=== PATIENT | male | born 1965 | race Caucasian/White ===

== ENCOUNTER 2019-12-20 08:08 | Emergency (ER) | payer OTHER ==
[2019-12-20 08:19] VITALS: TEMP 98.1
[2019-12-20 09:39] VITALS: BP 130/70; PULSE 70; RESP 16
--- NOTE | 2019-12-20 09:52 | XR ---
EXAMINATION TYPE: XR Hip Complete LT DATE OF EXAM: 12/20/2019 CLINICAL HISTORY: Left hip pain TECHNIQUE: AP and frogleg views of the left hip are obtained. COMPARISON: None. FINDINGS: There is no acute fracture/dislocation evident in the left hip. The joint space in the le ft hip appears aligned with mild arthropathy demonstrated as acetabular sclerosis and very small subc hondral cyst. Very small cam deformity is also seen at the lateral femoral head neck junction. The o verlying soft tissue appears unremarkable. IMPRESSION: There is no acute fracture or dislocation in the left hip. Mild left femoral acetabular arthropathy and very small cam deformity at the lateral femoral head neck junction, which can predisp ose this patient to femoral acetabular impingement syndrome
--- NOTE | 2019-12-20 10:06 | ED ---
Extremity Problem HPI - General Chief complaint: Extremity Problem,Nontraumatic Stated complaint: lt hip/leg pain, numbness Time Seen by Provider: 12/20/19 08:45 Source: patient Mode of arrival: ambulatory Limitations: no limitations - History of Present Illness Initial comments: Patient is 54-year-old male presenting to emergency Department with a chief complaint of left hip pain. Patient reports the symptoms have been worse over the last 2 days but have persisted for about one week. Patient reports the pain is exacerbated with ambulation or any weightbearing. Patient reports the pain starts in the left hip/left groin region and radiates along the anterior aspect to the knee. Denies any numbness or tingling. Denies any trauma to the region. Denies any history of osteoarthritis. Denies taking medication to alleviate his symptoms. Denies any testicular pain or swelling. Denies saddle anesthesia, urinary or bowel incontinence. - Related Data Allergies Allergy/AdvReac Type Severity Reaction Status Date / Time No Known Allergies Allergy Verified 12/20/19 08:19 Review of Systems ROS Statement: Those systems with pertinent positive or pertinent negative responses have been documented in the HPI. ROS Other: All systems not noted in ROS Statement are negative. Past Medical History Past Medical History: Diabetes Mellitus, Hypertension, Thyroid Disorder Additional Past Medical History / Comment(s): depression History of Any Multi-Drug Resistant Organisms: None Reported Past Surgical History: Back Surgery Past Psychological History: Depression Smoking Status: Never smoker Past Alcohol Use History: None Reported Past Drug Use History: None Reported General Exam Limitations: no limitations General appearance: alert, in no apparent distress Head exam: Present: atraumatic, normocephalic, normal inspection Eye exam: Present: normal appearance Pupils: Present: normal accommodation ENT exam: Present: normal exam Neck exam: Present: normal inspection, full ROM Respiratory exam: Present: normal lung sounds bilaterally Cardiovascular Exam: Present: regular rate, normal rhythm, normal heart sounds Extremities exam: Present: normal inspection, full ROM, tenderness (Left hip tenderness.), normal capillary refill, other (+2). Absent: pedal edema, joint swelling, calf tenderness (Negative Homans bilaterally) Back exam: Present: normal inspection, full ROM Neurological exam: Present: alert, oriented X3 Psychiatric exam: Present: normal affect, normal mood Skin exam: Present: warm, dry, intact, normal color Course Vital Signs 12/20/19 12/20/19 08:15 09:39 Temperature 98.1 F Pulse Rate 79 70 Respiratory 18 16 Rate Blood Pressure 134/75 130/70 O2 Sat by Pulse 97 100 Oximetry Medical Decision Making - Medical Decision Making Patient 54-year-old male presenting to emergency Department with a chief complaint of left hip pain. Patient does appear to have a pain starting in the left groin region radiating to the knee. 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 No cauda equina. Patient advised to alternate between Tylenol for pain control. He was advised to fol low-up with math specialist. Return parameters were thoroughly discussed the patient was understanding and agreeable. Case discussed with physician. Disposition Clinical Impression: Femoral acetabular impingement, Left hip pain Disposition: HOME SELF-CARE Condition: Stable Instructions (If sedation given, give patient instructions): Hip Pain (ED), Hip Abduction Pillow (DC) Additional Instructions: Please follow up with math specialist. Return to emergency department if symptoms worsen. Alternate between Tylenol and Motrin for pain control. Is patient prescribed a controlled substance at d/c from ED?: No Referrals: Matthew Longoria DO [Primary Care Provider] - 1-2 days Leeroy Cross MD [STAFF PHYSICIAN] - 1-2 days Time of Disposition: 10:05
== END 2019-12-20 10:18 | disposition home or self-care (01) ==
LOC: EC 08:08
DX: M25.852 Other specified joint disorders, left hip (principal); M25.552 Pain in left hip; E11.9 Type 2 diabetes mellitus without complications; I10 Essential (primary) hypertension
CPT/HCPCS: 73502; 99284

== ENCOUNTER → 2023-03-25 | Outpatient (CLI) | payer OTHER ==
--- NOTE | 2023-03-25 13:58 | P.SLEEP ---
History of Present Illness H&P Date: 03/25/23 57-year-old male patient with known history obstructive sleep apnea was coming in to reestablish himself and discuss treatment options. The patient was diagnosed having sleep apnea more than 10 years ago. He was given CPAP therapy which she tried for a while and he was unable to continue because of poor tolerability and he ended up quitting the treatment. Nevertheless, his [id number] has been poor and the patient has become tired and sleepy and somnolent during the day. He is coming in for further advice regarding treatment options. Noted the patient has diabetes mellitus and hypothyroidism and hyperlipidemia. He has history of depression. Has loud snoring. He is a mouth breather. He wakes up with dry mouth. He goes to bed around 10 PM and wakes up 6 AM in the morning. 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 Does not fall asleep while driving and is never been involved in a motor vehicle accident because of feeling drowsy or sleepy. His sleep is fragmented and he wakes up once or twice in the middle of the night to urinate. He sleeps on his stomach. His current Appleton score is at 9. No history of congestion heart failure. No myocardial infarction. He denies waking up choking or gasping for air. No heartburn or shortness of breath or chest pain overnight. Review of Systems Constitutional: Reports daytime sleepiness, Reports fatigue, Reports weight gain Eyes: denies as per HPI, denies blurred vision, denies bulging eye, denies decreased vision, denies diplopia, denies discharge, denies dry eye, denies irritation, denies itching, denies pain, denies photophobia, denies loss of peripheral vision, denies loss of vision, denies tunnel vision/blind spots Ears: deny: decreased hearing, ear discharge, earache, tinnitus Ears, nose, mouth and throat: Reports as per HPI, Reports sore throat Breasts: absent: as per HPI, gynecomastia Cardiovascular: Reports as per HPI Respiratory: Reports sleep apnea, Reports snoring Gastrointestinal: Reports as per HPI, Reports constipation Musculoskeletal: Reports low back pain Musculoskeletal: absent: ankle pain, ankle stiffness, ankle swelling Integumentary: Reports as per HPI Neurological: Reports as per HPI Psychiatric: Reports as per HPI Endocrine: Reports fatigue Hematologic/Lymphatic: Reports as per HPI Past Medical History Past Medical History: Diabetes Mellitus, Hypertension, Thyroid Disorder Additional Past Medical History / Comment(s): depression History of Any Multi-Drug Resistant Organisms: None Reported Past Surgical History: Back Surgery Past Psychological History: Depression Past Alcohol Use History: None Reported Past Drug Use History: None Reported Medications and Allergies Home Medications and Allergies Comment(s): medications include gemfibrozil 600 mg twice a day, metformin 1000 g twice a day, levothyroxin 150 g 1 tablet daily, lisinopril 5 mg by mouth daily, Effexor 150 mg by mouth daily, pioglitazone 15 mg by mouth daily. Allergies Allergy/AdvReac Type Severity Reaction Status Date / Time No Known Allergies Allergy Verified 12/20/19 08:19 Physical Exam BP is 144/80 with a pulse of 76 and a respiration of 16 and a temperature of 98.3. His current Appleton score is at 9, BMI is at 37, the size of the neck is 19.5 inches, pulse ox is 94% on room air oxygen. The patient appeared well nourished and normally developed. Vital signs as documented. Head exam is unremarkable. No scleral icterus or corneal arcus noted. Neck is without jugular venous distension, thyromegaly, or carotid bruits. Carotid upstrokes are brisk bilaterally.the patient is a Mallampati class IV with significant crowding of the posterior oropharynx. Lungs are clear to auscultation and percussion. Cardiac exam reveals the PMI to be normally sized and situated. Rhythm is regular. First and second heart sounds normal. No murmurs, rubs or gallops. Abdominal exam reveals normal bowel sounds, no masses, no organomegaly and no aortic enlargement. Extremities are nonedematous and both femoral and pedal pulses are normal.Examination of the skin revealed no evidence of significant rashes, suspicious appearing nevi or other concerning lesions.Neurologically, the patient is awake and alert and the patient does not have any focal neurological deficit. Cranial nerves are essentially intact. Assessment and Plan Plan: obstructive sleep apnea, diagnosed more than 10 years ago, no intolerant to CPAP therapy, symptomatic, coming in to discuss treatment options and is reconsiderin g CPAP therapy. 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 Obviously the treatment and the goal standard remains CPAP/BiPAP therapy. Alternatives include electrical stimulation of the hypoglossal nerve through the Inspire system. At this point in time, the patient carries a body mass index of 37 and he is not a candidate for the inspire. He is committed to lose weight. He is also considering another trial of CPAP/BiPAP therapy. For all those reasons, I'm going to reestablish diagnoses then proceed with CPAP/BiPAP titration and address the patient's previous failure to treatment. All options failed, and the patient remains intolerant, he'll be referred for inspire and having said this, he needs to bring his body mass index down to 35 to be a candidate for electrostimulation therapy. We'll continue to follow. Make further recommendations based on his progress. Sleep Note - Sleep Note Sleep Note: Temperature: Pulse Rate: Respiratory Rate: Blood Pressure: SpO2: Height: Weight: BMI: Neck Circumference:
== END ==
LOC: 3 N SLEEP 13:04
PROVIDERS: ATTEND Internal Medicine Critical Care Medicine
DX: G47.33 Obstructive sleep apnea (adult) (pediatric) (principal); E11.9 Type 2 diabetes mellitus without complications; I10 Essential (primary) hypertension; Z99.89 Dependence on other enabling machines and devices; E66.9 Obesity, unspecified; Z68.37 Body mass index [BMI] 37.0-37.9, adult; F32.A Depression, unspecified; E03.9 Hypothyroidism, unspecified; R53.82 Chronic fatigue, unspecified
CPT/HCPCS: 99202

== ENCOUNTER 2023-04-24 19:01 | Outpatient (CLI) | payer OTHER | END 2023-04-25 23:59 | LOC: 3 N SLEEP 19:01 → EDSTATUS 19:20 → 3 N SLEEP 04-25 05:15 | PROVIDERS: ATTEND Internal Medicine Critical Care Medicine | DX: G47.33 Obstructive sleep apnea (adult) (pediatric) (principal) | CPT/HCPCS: 95810 ==

== ENCOUNTER 2023-06-02 14:21 | Emergency (ER) | payer OTHER ==
[2023-06-02 14:47] VITALS: BP 117/69; PULSE 81; RESP 20; TEMP 98.1
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
== END 2023-06-02 15:53 | disposition left against medical advice (07) ==
LOC: EC 14:21
DX: Z04.3 Encounter for examination and observation following other accident (principal); I10 Essential (primary) hypertension; E11.9 Type 2 diabetes mellitus without complications; Z86.59 Personal history of other mental and behavioral disorders; Z53.29 Procedure and treatment not carried out because of patient's decision for other reasons
CPT/HCPCS: 99283

== ENCOUNTER → 2025-02-25 | Outpatient (CLI) | payer BC ==
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
== END | disposition home or self-care (01) ==
LOC: RADXRMAIN 09:02
PROVIDERS: ATTEND Family Medicine
DX: M17.12 Unilateral primary osteoarthritis, left knee (principal)